=== PATIENT | male | born 1970 | race African-American/Black ===

== ENCOUNTER 2018-04-23 23:46 | Emergency (ER) | payer SELFPAY | END 2018-04-24 00:10 | disposition home or self-care (01) | LOC: ER 23:46 | DX: J01.00 Acute maxillary sinusitis, unspecified (principal); J01.10 Acute frontal sinusitis, unspecified; H93.8X2 Other specified disorders of left ear; E11.9 Type 2 diabetes mellitus without complications; I10 Essential (primary) hypertension; F17.200 Nicotine dependence, unspecified, uncomplicated; Z89.112 Acquired absence of left hand; Z98.890 Other specified postprocedural states | CPT/HCPCS: 99283 ==